=== PATIENT | female | born 1995 | race Two or more races ===

== ENCOUNTER 2020-05-13 15:44 | Emergency (ER) | payer OTHER ==
[~2020-05-13] VITALS: Ht 170.2 cm; Wt 90.7 kg
[2020-05-13] MEDS ORDERED: CEFADROXIL500 MG PO (16:42)
== END 2020-05-13 17:03 | disposition home or self-care (01) ==
LOC: ER 15:44
DX: H66.92 Otitis media, unspecified, left ear (principal)

== ENCOUNTER 2020-05-18 15:24 | Emergency (ER) | payer OTHER ==
[~2020-05-18] VITALS: Ht 170.2 cm; Wt 90.7 kg
[~2020-05-18 15:24] MED LIST: CEFADROXIL500 MG PO
== END 2020-05-18 17:33 | disposition home or self-care (01) ==
LOC: ER 15:24
DX: H66.92 Otitis media, unspecified, left ear (principal)

== ENCOUNTER 2021-01-08 13:14 | Emergency (ER) | payer OTHER ==
[~2021-01-08] VITALS: Ht 170.2 cm; Wt 90.7 kg
== END 2021-01-08 13:57 | disposition home or self-care (01) ==
LOC: ER 13:14
DX: J03.90 Acute tonsillitis, unspecified (principal)

== ENCOUNTER 2024-02-04 09:34 | Emergency (ER) | payer OTHER ==
[~2024-02-04] VITALS: Ht 170.2 cm; Wt 90.7 kg
[2024-02-04] MEDS ORDERED: KETOROLAC TROMETHAMINE 30 MG VIAL IM ONE (11:45)
[2024-02-04 12:11] LABS: HEMATOCRIT 38.2 % (36.0-45.00); HEMOGLOBIN 12.8 g/dL (12.0-15.00); MEAN CELL VOLUME 86.6 fL (80.00-100.00); MEAN CORPUSCULAR HGB CONC 33.5 g/dl (32.0-36.0); PLATELET COUNT 330 K/uL (150-450); RED BLOOD COUNT 4.42 M/uL (4.00-6.00); RED CELL DISTRIBUTION WIDTH 14.1 % (11.5-14.5)
[2024-02-04 12:28] LABS: PH,URINE 6.5 (5.0-8.0); URINE APPEARANCE Clear; URINE BILIRRUBIN Negative (NEGATIVE); URINE BLOOD Moderate; URINE COLOR Yellow; URINE GLUCOSE Negative (NEGATIVE); URINE KETONE Negative (NEGATIVE); URINE LEUKOCYTE Negative; URINE NITRATE Negative; URINE PROTEIN Negative (NEGATIVE); URINE UROBILINOGEN 0.2 E.U./dl
[2024-02-04 12:29] LABS: URINE BACTERIA 35.2 uL (0.0-1933); URINE EPITHELIAL CELLS 3.7 uL (0.0-38.8); URINE RBC 109.9 uL (0.0-20.8); URINE WBC 17.4 uL (0.0-23.2)
[2024-02-04 12:35] LABS: CALCIUM 9.2 mg/dL (8.5-10.1); CREATININE SERUM 0.59 mg/dL (0.55-1.02); GFR 119.68; POTASSIUM 3.98 mEq/L (3.5-5.1)
== END 2024-02-04 15:23 | disposition home or self-care (01) ==
LOC: ER 09:36
PROVIDERS: General Practice
DX: R10.2 Pelvic and perineal pain (principal)
CPT/HCPCS: 36415; 96372; 99282; J1885